=== PATIENT | female | born 1980 ===

== ENCOUNTER 2018-07-12 08:19 | Inpatient (IN) | payer BC, MEDICAID ==
[2018-07-12 08:26] VITALS: BMI 32.3
--- NOTE | 2018-07-12 08:44 | ED PDOC ---
Arrival/HPI - General Chief Complaint: Abdominal Pain Time Seen by Provider: 07/12/18 08:28 Historian: Patient - History of Present Illness Narrative History of Present Illness (Text): 07/12/18 08:43 38 year old female, with no significant past medical history, presents to the emergency department complaining of abdominal pain. Patient states she has been experiencing intermittent abdominal pain for the past few months, but the pain has been constant since yesterday. She reports that the pain usually begins right after she eats. She notes associated shortness of breath and nausea. Patient denies fevers, chills, headache, dizziness, chest pain, cough, vomiting, diarrhea, back pain, neck pain, or any other complaint. Time/Duration: > month Symptom Onset: Gradual Symptom Course: Intermittent Activities at Onset: Light Context: Home Past Medical History - Provider Review Nursing Documentation Reviewed: Yes - Infectious Disease Hx of Infectious Diseases: None - Reproductive Menopause: No - Psychiatric Hx Substance Use: No - Surgical History Hx Section: Yes - Anesthesia Hx Anesthesia: Yes Hx Anesthesia Reactions: No Hx Malignant Hyperthermia: No Family/Social History - Physician Review Nursing Documentation Reviewed: Yes Family/Social History: No Known Family HX Smoking Status: Never Smoked Hx Alcohol Use: No Hx Substance Use: No Allergies/Home Meds Allergies/Adverse Reactions: Allergies No Known Allergies Allergy (Verified 07/12/18 08:30) Home Medications: Home Meds Medication Instructions Recorded Confirmed No Known Home Med 07/12/18 07/12/18 Review of Systems - Physician Review All systems were reviewed & negative as marked: Yes - Review of Systems Constitutional: absent: Fevers Respiratory: SOB. absent: Cough Cardiovascular: absent: Chest Pain Gastrointestinal: Abdominal Pain, Nausea. absent: Diarrhea, Vomiting Genitourinary Female: absent: Dysuria Musculoskeletal: absent: Back Pain, Neck Pain Neurological: absent: Headache, Dizziness Physical Exam - Physical Exam Narrative Physical Exam (Text): 07/12/18 08:43 Gen: VS reviewed, alert, well developed, well nourished, nontoxic, mild distress secondary to pain. ENT: normal pharynx. Eye: EOMI, PERRL. Neck: no JVD, supple, no adenopathy. CV: regular rate, regular rhythm, no rubs, no murmur, no gallops, S1, S2, pulses equal and strong. Pulm: no distress, clear to auscultation, no wheeze, no rhonchi, breath sounds equal, no rales. Abd: soft, epigastric tenderness with a positive Lombardi's sign with guarding, no rebound, no rigidity, normal bowel sounds. Ext: no edema. Skin: good color, no rash, no cyanosis. Psych: responds appropriately to questions, normal affect. Neuro: oriented x 3, CN2-12 intact grossly, motor intact, sensation intact. Vital Signs Reviewed: Yes Vital Signs Temp Pulse Resp BP Pulse Ox 07/12/18 08:36 97.8 F 64 18 130/86 100 Temperature: Afebrile Blood Pressure: Normal Pulse: Regular Respiratory Rate: Normal Appearance: Positive for: Well-Appearing, Non-Toxic, Comfortable Pain Distress: Mild Mental Status: Positive for: Alert and Oriented X 3 Medical Decision Making ED Course and Treatment: 07/12/18 08:43 Impression: 38 year old female who presents to the emergency department complaining of epigastric abdominal pain. Plan: -- Labs -- NPO -- Morphine -- Morphine -- IV fluids -- Zofran -- POC urine test -- Gallbladder and pancreas ultrasound -- Reassess and disposition Prior Visits: Notes and results from previous visits were reviewed. Progress Notes: 07/12/18 13:[address] strong to the hospitalist service. patient to be admitted for persistent pain stemming from impacted gallbladder neck stone. 07/12/18 14:06 - Lab Interpretations I have reviewed the lab results: Yes - RAD Interpretation Narrative RAD Interpretations (Text): 07/12/18 10:24 Gallbladder and pancrease ultrasound reviewed by radiologist, shows: IMPRESSION: Cholelithiasis without evidence of cholecystitis. Possible impacted stone in gallbladder neck. Fatty liver. Multiple simple cysts in right lobe of liver. Mild hepatomegaly. Head Of Science: Radiologist - EKG Interpretation EKG Interpretation (Text): 07/12/18 12:25 0832: ekg my read: sinus estephania at 46 bpm, nml qrs, nml axis , no acute sttw abn Interpreted by ED Physician: Yes - Scribe Statement The provider has reviewed the documentation as recorded by the Khoi Garay Provider Scribe Attestation: All medical record entries made by the Scribe were at my direction and personally dictated by me. I have reviewed the chart and agree that the record accurately reflects my personal performance of the history, physical exam, medical decision making, and the department course for this patient. I have also personally directed, reviewed, and agree with the discharge instructions and disposition. Disposition/Present on Arrival - Present on Arrival Any Indicators Present on Arrival: No History of DVT/PE: No History of Uncontrolled Diabetes: No Urinary Catheter: No History of Decub. Ulcer: No History Surgical Site Infection Following: None - Disposition Have Diagnosis and Disposition been Completed?: Yes Diagnosis: Biliary colic Disposition: HOSPITALIZED Disposition Time: 14:07 Patient Plan: Observation Condition: STABLE Referrals: Regino Baeza NP [Primary Care Provider] - Follow up with primary Forms: [employer] (Khmer)
[2018-07-12] MEDS ORDERED: Morphine 4 mg/ml ISec IVP STA (08:57)
[2018-07-12 09:12] LABS: BASO # 0.02 K/mm3 (0.0-2.0); BASO % 0.2 % (0.0-3.0); EOS # 0.1 (0.0-0.7); EOS % 1.1 % (1.5-5.0); HEMOGLOBIN 14.2 g/dL (12.0-16.0); LYMPH # 1.1 (1.2-3.4); LYMPH % 10.7 % (22.0-35.0); MEAN CELL VOLUME 87.3 fl (80.0-105.0); MEAN CORPUSCULAR HGB CONC 33.3 g/dl (31.0-37.0); MEAN PLATELET VOLUME 10.1 fl (7.0-11.0); MONO # 0.5 (0.1-0.6); MONO % 4.7 % (1.0-6.0); RBC 4.89 10^6/uL (3.5-6.1); RED CELL DISTRIBUTION WIDTH 13.4 % (11.5-14.5); WHITE BLOOD COUNT 10.4 10^3/uL (4.5-11.0)
[2018-07-12] MEDS: Sodium Chloride 0.9% 1,000 ML IV SCH (09:14)
[2018-07-12 09:39] LABS: ALB/GLOB RATIO 1.2 (1.1-1.8); ALBUMIN 4.3 g/dL (3.0-4.8); ALT/SGPT 22 U/L (7-56); AST/SGOT 22 U/L (14-36); BLOOD UREA NITROGEN 14 mg/dL (7-21); CALCIUM 9.2 mg/dL (8.4-10.5); GFR NON-AFRICAN AMERICAN > 60; LIPASE 113 U/L (23-300)
--- NOTE | 2018-07-12 10:15 | US ---
Date of service: 07/12/2018 HISTORY: pain, ?gallstones COMPARISON: None. TECHNIQUE: Sonographic evaluation of the right upper quadrant of the abdomen. FINDINGS: LIVER: Measures 20.1 cm in length. Diffusely increased echogenicity of the liver parenchyma. Consistent with fatty infiltration. Smooth contour. Multiple cysts in right lobe of liver, 12 mm, 13 mm and 14 mm in respective diameter. No solid mass. No biliary ductal dilatation.. GALLBLADDER: Cholelithiasis. No mural thickening. No pericholecystic fluid. Stone suspected impacted at gallbladder neck. Nonmobile. COMMON BILE DUCT: Measures 6 mm. No stones. No dilatation. PANCREAS: Unremarkable as visualized. No mass. No ductal dilatation. RIGHT KIDNEY: Measures 10.3 cm in length. Normal echogenicity. No calculus, mass, or hydronephrosis. AORTA: No aneurysmal dilatation. IVC: Unremarkable. OTHER FINDINGS: None . IMPRESSION: Cholelithiasis without evidence of cholecystitis. Possible impacted stone in gallbladder neck. Fatty liver. Multiple simple cysts in right lobe of liver. Mild hepatomegaly.
[2018-07-12] MEDS ORDERED: Bupivacaine 0.5% 50 ML IJ ONE ×2 (10:18→20:24)
--- NOTE | 2018-07-12 13:18 | CP.PCM.CON ---
History of Present Illness - History of Present Illness History of Present Illness: Harry Ritchie, PGY-[address] Johnson CC: Abdominal pain HPI: Ms. Knight is a 38 F with a past medical history of four c-sections who presents with a 3-4 week history of intermittent epigastric pain. Patient describes the pain as burning and rated at 10/10 at its worst. Patient describes intermittent episodes of diaphoresis that is associated with eating various types of food. Patient has attempted to use Peptobismol and Motrin for pain control with minimal relief. Patient states she is hungry but is nervous about becoming nauseous. Patient currently denies nausea, vomiting, headaches, change in bowel habits, fevers/chills, pain radiating to the back, headaches, blurry vision. Patient reports the pain is currently controlled after receiving Morphine in the ED. PMHx: Denies PSHx: 4 c/sections All: NKDA Social: denies tobacco, etoh and illicit drug use Fam Hx: Father - hx of leukemia Meds: denies Review of Systems - Review of Systems Review of Systems: 12 point ROS completed and negative except as described in HPI. Past Patient History - Infectious Disease Hx of Infectious Diseases: None - Past Social History Smoking Status: Never Smoked - PSYCHIATRIC Hx Substance Use: No - SURGICAL HISTORY Hx Section: Yes - ANESTHESIA Hx Anesthesia: Yes Hx Anesthesia Reactions: No Hx Malignant Hyperthermia: No Meds Allergies/Adverse Reactions: Allergies Allergy/AdvReac Type Severity Reaction Status Date / Time No Known Allergies Allergy Verified 07/12/18 16:19 - Medications Medications: Current Medications Sodium Chloride (Sodium Chloride 0.9%) 1,000 mls @ 150 mls/hr IV .Q6H40M [facility] Last Admin: 07/12/18 09:14 Dose: 150 mls/hr Physical Exam - Constitutional Appears: Non-toxic, No Acute Distress (Uncomfortable ) - Head Exam Head Exam: ATRAUMATIC, NORMAL INSPECTION, NORMOCEPHALIC - Eye Exam Eye Exam: EOMI, Normal appearance Pupil Exam: PERRL - ENT Exam ENT Exam: Mucous Membranes Moist - Neck Exam Neck exam: Positive for: Normal Inspection - Respiratory Exam Respiratory Exam: Clear to Auscultation Bilateral, NORMAL BREATHING PATTERN. absent: Accessory Muscle Use, Decreased Breath Sounds, Rales, Rhonchi, Wheezes - Cardiovascular Exam Cardiovascular Exam: RRR, +S1, +S2 - GI/Abdominal Exam GI & Abdominal Exam: Guarding (RUQ), Hyperactive Bowel Sounds, Soft, Tenderness (RUQ/epigastric tenderness, + Lombardi's sign, negative Rovsing and McBurney's Point). absent: Distended, Firm, Rebound - Extremities Exam Extremities exam: Positive for: full ROM - Back Exam Back exam: NORMAL INSPECTION. absent: CVA tenderness (L), CVA tenderness (R) - Neurological Exam Neurological exam: Alert, Oriented x3 - Psychiatric Exam Psychiatric exam: Normal Affect, Normal Mood Results - Vital Signs Recent Vital Signs: Last Vital Signs Temp 97.8 F 07/12/18 08:36 Pulse 55 L 07/12/18 11:16 Resp 18 07/12/18 11:16 BP 112/48 L 07/12/18 11:16 Pulse Ox 98 07/12/18 11:16 - Labs Result Diagrams: 07/12/18 09:00 07/12/18 09:00 Labs: Laboratory Results - last 24 hr 07/12/18 07/12/18 09:00 09:00 WBC 10.4 RBC 4.89 Hgb 14.2 Hct 42.7 MCV 87.3 MCH 29.0 MCHC 33.3 RDW 13.4 Plt Count 354 MPV 10.1 Neut % (Auto) 83.3 H Lymph % (Auto) 10.7 L [place] % (Auto) 4.7 Eos % (Auto) 1.1 L Baso % (Auto) 0.2 Lymph # (Auto) 1.1 L [place] # (Auto) 0.5 Eos # (Auto) 0.1 Baso # (Auto) 0.02 Absolute Neuts (auto) 8.70 H Sodium 137 Potassium 4.0 Chloride 104 Carbon Dioxide 24 Anion Gap 13 BUN 14 Creatinine 0.5 L Est GFR ( Amer) > 60 Est GFR (Non-Af Amer) > 60 Random Glucose 119 H Calcium 9.2 Total Bilirubin 0.3 AST 22 ALT 22 Alkaline Phosphatase 80 Total Protein 7.9 Albumin 4.3 Globulin 3.6 Albumin/Globulin Ratio 1.2 Lipase 113 Assessment & Plan - Assessment and Plan (Free Text) Assessment: 38 F with no PMHx who presents with epigastric abdominal pain 2/2 cholelithiasis . No fevers or leukocytosis. Gallbladder ultrasound shows cholelithiasis without evidence of cholecystitis. Possible impacted stone in gallbladder neck. Fatty liver. Multiple simple cysts in right lobe of liver. Mild hepatomegaly. Plan: Pain control IVF, NPO Lap issa planned for this evening, patient consented Medical management per medical team Further recs per Dr. Alex Ritchie, PGY-1
[2018-07-12] MEDS ORDERED: Morphine 2 mg/ml ISec IVP PRN (13:54)
[2018-07-12] MEDS ORDERED: Dextrose 5%/0.45% NS 1,000 ML IV SCH (14:15)
--- NOTE | 2018-07-12 14:31 | CP.PCM.HP ---
<Randall Davis - Last Filed: 07/12/18 15:41> History of Present Illness - History of Present Illness History of Present Illness: PGY-1 Medicine H&P for Dr. Mosquera CC: Epigastric pain HPI: Ms. Knight is a 38 year old female with no significant past medical history presenting with epigastric pain. She states that she has been having these pain intermittently for 3 weeks. She states that she gets pain especially after eating out or eating fatty food. Last night, patient had epigastric pain after eating a slice of pizza that lasted for 8 hours. She describes the pain as non-radiating, burning, and rated at 10/10 at its worst. She took Peptobismol and Motrin for pain control without relief. She admits to nausea but denies vomiting. She denies fevers, chills, shortness of breath, chest pain, diarrhea, constipation, or urinary symptoms. In ED, patient received Morphine for pain. 12 system ROS reviewed and negative except mentioned in HPI. PMHx: Denies PSHx: 4 C-sections Allergies: NKDA Social: denies tobacco and illicit drug use. Occasionally drinks wine. She works as a information security engineer. Fam Hx: Father had leukemia. Meds: denies PMD: Dr. Lowry Present on Admission - Present on Admission Any Indicators Present on Admission: No History of DVT/PE: No History of Uncontrolled Diabetes: No Urinary Catheter: No Decubitus Ulcer Present: No Past Patient History - Infectious Disease Hx of Infectious Diseases: None - Past Social History Smoking Status: Never Smoked - PSYCHIATRIC Hx Substance Use: No - SURGICAL HISTORY Hx Section: Yes - ANESTHESIA Hx Anesthesia: Yes Hx Anesthesia Reactions: No Hx Malignant Hyperthermia: No Meds Allergies/Adverse Reactions: Allergies Allergy/AdvReac Type Severity Reaction Status Date / Time No Known Allergies Allergy Verified 07/12/18 16:19 Physical Exam - Additional Findings Additional findings: - Constitutional Appears: Non-toxic, No Acute Distress, appears uncomfortable - Head Exam Head Exam: ATRAUMATIC, NORMAL INSPECTION, NORMOCEPHALIC - Eye Exam Eye Exam: EOMI, Normal appearance Pupil Exam: PERRL - ENT Exam ENT Exam: Mucous Membranes Moist - Neck Exam Neck exam: Positive for: Normal Inspection - Respiratory Exam Respiratory Exam: Clear to Auscultation Bilateral, NORMAL BREATHING PATTERN. absent: Accessory Muscle Use, Decreased Breath Sounds, Rales, Rhonchi, Wheezes - Cardiovascular Exam Cardiovascular Exam: RRR, +S1, +S2 - GI/Abdominal Exam GI & Abdominal Exam: Hyperactive Bowel Sounds, Soft, Tenderness (Epigastric tenderness, Negative Lombardi's sign, negative Rovsing and McBurney's Point). absent: Distended, Firm, Rebound - Extremities Exam Extremities exam: Positive for: full ROM - Back Exam Back exam: NORMAL INSPECTION. absent: CVA tenderness (L), CVA tenderness (R) - Neurological Exam Neurological exam: Alert, Oriented x3 - Psychiatric Exam Psychiatric exam: Normal Affect, Normal Mood Results - Vital Signs Recent Vital Signs: Last Vital Signs Temp 97.8 F 07/12/18 08:36 Pulse 55 L 07/12/18 11:16 Resp 18 07/12/18 11:16 BP 112/48 L 07/12/18 11:16 Pulse Ox 98 07/12/18 11:16 - Labs Result Diagrams: 07/12/18 09:00 07/12/18 09:00 Labs: Laboratory Results - last 24 hr 07/12/18 07/12/18 09:00 09:00 WBC 10.4 RBC 4.89 Hgb 14.2 Hct 42.7 MCV 87.3 MCH 29.0 MCHC 33.3 RDW 13.4 Plt Count 354 MPV 10.1 Neut % (Auto) 83.3 H Lymph % (Auto) 10.7 L [place] % (Auto) 4.7 Eos % (Auto) 1.1 L Baso % (Auto) 0.2 Lymph # (Auto) 1.1 L [place] # (Auto) 0.5 Eos # (Auto) 0.1 Baso # (Auto) 0.02 Absolute Neuts (auto) 8.70 H Sodium 137 Potassium 4.0 Chloride 104 Carbon Dioxide 24 Anion Gap 13 BUN 14 Creatinine 0.5 L Est GFR ( Amer) > 60 Est GFR (Non-Af Amer) > 60 Random Glucose 119 H Calcium 9.2 Total Bilirubin 0.3 AST 22 ALT 22 Alkaline Phosphatase 80 Total Protein 7.9 Albumin 4.3 Globulin 3.6 Albumin/Globulin Ratio 1.2 Lipase 113 Assessment & Plan - Assessment and Plan (Free Text) Assessment: Patient is a 38 year old female with no significant past medical history presenting with epigastric pain. Patient is admitted for management and treatment of cholelithiasis. Plan: Cholelithiasis - Gallbladder ultrasound shows cholelithiasis without evidence of cholecystitis. Possible impacted stone in gallbladder neck. Fatty liver. Multiple simple cysts in right lobe of liver. Mild hepatomegaly. - Surgery consulted, Dr. Johnson - Morphine 2mg Q4 PRN - Tylenol 650mg PO PRN - Zofran 4mg IVP Q4 PRN - IVF: NS @ 100 mls/hr - Keep patient NPO - Lipase: 113 - AST/ALT: - Alk phos: 80 Prophylaxis: - SCD's Patient seen and case discussed with attending, Dr. Eveline Davis, PGY-1 <Emeka Mosquera - Last Filed: 07/12/18 19:44> Results - Vital Signs Recent Vital Signs: Last Vital Signs Temp 97.8 F 07/12/18 08:36 Pulse 57 L 07/12/18 19:32 Resp 18 07/12/18 19:32 BP 103/63 07/12/18 19:32 Pulse Ox 100 07/12/18 19:32 - Labs Result Diagrams: 07/12/18 09:00 07/12/18 09:00 Labs: Laboratory Results - last 24 hr 07/12/18 07/12/18 07/12/18 09:00 09:00 17:06 WBC 10.4 RBC 4.89 Hgb 14.2 Hct 42.7 MCV 87.3 MCH 29.0 MCHC 33.3 RDW 13.4 Plt Count 354 MPV 10.1 Neut % (Auto) 83.3 H Lymph % (Auto) 10.7 L [place] % (Auto) 4.7 Eos % (Auto) 1.1 L Baso % (Auto) 0.2 Lymph # (Auto) 1.1 L [place] # (Auto) 0.5 Eos # (Auto) 0.1 Baso # (Auto) 0.02 Absolute Neuts (auto) 8.70 H PT INR APTT Sodium 137 Potassium 4.0 Chloride 104 Carbon Dioxide 24 Anion Gap 13 BUN 14 Creatinine 0.5 L Est GFR ( Amer) > 60 Est GFR (Non-Af Amer) > 60 Random Glucose 119 H Calcium 9.2 Total Bilirubin 0.3 AST 22 ALT 22 Alkaline Phosphatase 80 Total Protein 7.9 Albumin 4.3 Globulin 3.6 Albumin/Globulin Ratio 1.2 Lipase 113 Blood Type B POSITIVE Blood Type Confirm Antibody Screen Negative BBK History Checked No verified bt 07/12/18 07/12/18 17:06 17:23 WBC RBC Hgb Hct MCV MCH MCHC RDW Plt Count MPV Neut % (Auto) Lymph % (Auto) [place] % (Auto) Eos % (Auto) Baso % (Auto) Lymph # (Auto) [place] # (Auto) Eos # (Auto) Baso # (Auto) Absolute Neuts (auto) PT 12.5 INR 1.13 APTT 33.1 Sodium Potassium Chloride Carbon Dioxide Anion Gap BUN Creatinine Est GFR ( Amer) Est GFR (Non-Af Amer) Random Glucose Calcium Total Bilirubin AST ALT Alkaline Phosphatase Total Protein Albumin Globulin Albumin/Globulin Ratio Lipase Blood Type Blood Type Confirm B POSITIVE Antibody Screen BBK History Checked Attending/Attestation - Attestation I have personally seen and examined this patient.: Yes I have fully participated in the care of the patient.: Yes I have reviewed all pertinent clinical information: Yes Notes (Text): 38 y/o F with no significant PMH presented with complaints of severe abdominal pain. Work up was consistent with cholelithiasis without any evidence of cholecystitis. Surgery consulted, plan is for OR tonight. c/w pain meds PRN. Ty lenol PRN for fever
[2018-07-12] MEDS ORDERED: HYDROmorphone 0.5 mg/0.5 ml ISec IVP PRN (16:34)
[2018-07-12 17:29] LABS: INR 1.13; PARTIAL THROMBOPLASTIN TIME 33.1 Seconds (26.9-38.3); PROTHROMBIN TIME 12.5 SECONDS (9.4-12.5)
--- NOTE | 2018-07-12 17:55 | CARD ---
APPROVED REPORT Date of service: 07/12/2018 EKG Measurement Heart [id number] MD [id number] <Conclusion> Marked sinus bradycardia Abnormal ECG
[2018-07-12] MEDS ORDERED: Succinylcholine 200 mg/10 ml Inj IV ONE (20:26)
[2018-07-12] MEDS ORDERED: Propofol 10 mg/ml Inj (20 ML) ONE (20:26)
[2018-07-12] MEDS ORDERED: Sevoflurane - Inhalation Anesthetic Liq (250 ml) ONE (20:32)
[2018-07-12] MEDS ORDERED: Desflurane Inhalation Anesthetic Liq (240 ml) ONE (20:32)
[2018-07-12] MEDS ORDERED: Midazolam 2 MG/2 ML VIAL ONE (20:37)
[2018-07-12] MEDS ORDERED: Lactated Ringer's 1,000 ML IV SCH (20:45)
[2018-07-12] MEDS ORDERED: Rocuronium 10 mg/ml (5 ml) ONE (21:05)
[2018-07-12] MEDS ORDERED: Phenylephrine 10 mg/ml Inj ONE (21:16)
[2018-07-12] MEDS ORDERED: Neostigmine Methylsulfate 3mg/3ml Syringe IV ONE ×2 (21:18→21:20)
[2018-07-12] MEDS ORDERED: Esmolol 100 mg/10ml Inj IV ONE (22:03)
[2018-07-12] MEDS ORDERED: Liquid Adhesive TOP ONE (22:14)
[2018-07-12] MEDS: HYDROmorphone 0.5 mg/0.5 ml ISec IVP PRN ×2 (22:35→22:50)
[2018-07-12] MEDS ORDERED: Oxycodone/Acetaminophen 5/325 mg Tab PO PRN (22:38)
--- NOTE | 2018-07-12 22:38 | PCM.SURG1 ---
Surgeon's Initial Post Op Note - Surgeon's Notes Surgeon: Dr. Johnson Sales Driver: Dr. Montanez PGY3 Type of Anesthesia: General Endo Anesthesia Administered By: Dr. Cesar Pre-Operative Diagnosis: Symptomatic Cholelithiasis Operative Findings: See operative dictation Post-Operative Diagnosis: Same Operation Performed: Laparoscopic Cholecystectomy Specimen/Specimens Removed: Gallbladder Estimated Blood Loss: EBL {In ML}: 20 Blood Products Given: N/A Drains Used: No Drains Post-Op Condition: Good Date of Surgery/Procedure: 07/12/18 Time of Surgery/Procedure: 22:37
[2018-07-12] MEDS ORDERED: HYDROmorphone 0.5 mg/0.5 ml ISec ONE ×2 (22:39→22:55)
[2018-07-12] MEDS ORDERED: Pneumococcal 23-Valent Vaccine IM ONE (22:56)
[2018-07-12] MEDS ORDERED: Influenza Vaccine 60 mcg/0.5 mL SYR (4YR UP) IM ONE (22:56)
[2018-07-13] MEDS ORDERED: Pantoprazole 40 mg EC Tab PO STA (01:46)
[2018-07-13] MEDS: Sodium Chloride 0.9% 1,000 ML IV SCH (01:53)
--- NOTE | 2018-07-13 03:02 | CP.PCM.PN ---
Subjective - Date & Time of Evaluation Date of Evaluation: 07/13/18 Time of Evaluation: 02:39 - Subjective Subjective: # 24 angiocath was inserted in left hand. Patient was given protonix 40 mg PO for upset stomach. Vitals signs are stable. Objective - Vital Signs/Intake and Output Vital Signs (last 24 hours): Temp Pulse Resp BP Pulse Ox 98.2 F 56 L 17 131/87 98 07/12/18 23:12 07/12/18 23:12 07/12/18 23:12 07/12/18 23:12 07/12/18 23:12 - Medications Medications: Current Medications Acetaminophen (Tylenol 325mg Tab) 650 mg PO Q6H PRN PRN Reason: Pain, Mild (1-3) Hydromorphone HCl (Dilaudid) 0.5 mg IVP Q6H PRN PRN Reason: Pain, severe (8-10) Last Admin: 07/13/18 01:53 Dose: 0.5 mg Sodium Chloride (Sodium Chloride 0.9%) 1,000 mls @ 150 mls/hr IV .Q6H40M [facility] Last Admin: 07/13/18 01:53 Dose: 150 mls/hr Dextrose/Sodium Chloride (Dextrose 5%/0.45% Ns 1000 Ml) 1,000 mls @ 75 mls/hr IV .[id number] [facility] Stop: 07/13/18 03:34 Last Admin: 07/12/18 15:31 Dose: 75 mls/hr Ondansetron HCl (Zofran Inj) 4 mg IVP Q4H PRN PRN Reason: Nausea/Vomiting Ondansetron HCl (Zofran Inj) 4 mg IVP ONCE PRN PRN Reason: Nausea/Vomiting Oxycodone/Acetaminophen (Percocet 5/325 Mg Tab) 1 tab PO Q4 PRN PRN Reason: Pain, moderate (4-7) Stop: 07/16/18 00:01 - Labs Labs: 07/12/18 09:00 07/12/18 09:00 PT 12.5 SECONDS (9.4-12.5) 07/12/18 17:06 INR 1.13 07/12/18 17:06 APTT 33.1 Seconds (26.9-38.3) 07/12/18 17:06
[2018-07-13 07:02] LABS: HEMOGLOBIN 13.5 g/dL (12.0-16.0); LYMPH # 0.7 (1.2-3.4); LYMPH % 6.3 % (22.0-35.0); MEAN CELL VOLUME 87.2 fl (80.0-105.0); MEAN CORPUSCULAR HEMOGLOBIN 28.7 pg (25.0-35.0); MEAN CORPUSCULAR HGB CONC 32.9 g/dl (31.0-37.0); MEAN PLATELET VOLUME 10.4 fl (7.0-11.0); MONO # 0.4 (0.1-0.6); MONO % 3.7 % (1.0-6.0); RBC 4.7 10^6/uL (3.5-6.1); RED CELL DISTRIBUTION WIDTH 13.4 % (11.5-14.5); WHITE BLOOD COUNT 10.6 10^3/uL (4.5-11.0)
[2018-07-13 07:19] LABS: ALB/GLOB RATIO 1.1 (1.1-1.8); ALT/SGPT 62 U/L (7-56); AST/SGOT 99 U/L (14-36); BLOOD UREA NITROGEN 8 mg/dL (7-21); CALCIUM 8.8 mg/dL (8.4-10.5); GFR NON-AFRICAN AMERICAN > 60
--- NOTE | 2018-07-13 07:24 | CP.PCM.PN ---
Subjective - Date & Time of Evaluation Date of Evaluation: 07/13/18 Time of Evaluation: 07:24 Objective - Vital Signs/Intake and Output Vital Signs (last 24 hours): Temp Pulse Resp BP Pulse Ox 98.2 F 56 L 17 131/87 98 07/12/18 23:12 07/12/18 23:12 07/12/18 23:12 07/12/18 23:12 07/12/18 23:12 - Medications Medications: Current Medications Acetaminophen (Tylenol 325mg Tab) 650 mg PO Q6H PRN PRN Reason: Pain, Mild (1-3) Hydromorphone HCl (Dilaudid) 0.5 mg IVP Q6H PRN PRN Reason: Pain, severe (8-10) Last Admin: 07/13/18 01:53 Dose: 0.5 mg Ondansetron HCl (Zofran Inj) 4 mg IVP Q4H PRN PRN Reason: Nausea/Vomiting Ondansetron HCl (Zofran Inj) 4 mg IVP ONCE PRN PRN Reason: Nausea/Vomiting Oxycodone/Acetaminophen (Percocet 5/325 Mg Tab) 1 tab PO Q4 PRN PRN Reason: Pain, moderate (4-7) Stop: 07/16/18 00:01 - Labs Labs: 07/13/18 06:20 07/13/18 06:20 PT 12.5 SECONDS (9.4-12.5) 07/12/18 17:06 INR 1.13 07/12/18 17:06 APTT 33.1 Seconds (26.9-38.3) 07/12/18 17:06
[2018-07-13 08:01] VITALS: RESP 18
--- NOTE | 2018-07-13 14:40 | CP.PCM.DIS ---
<Randall Davis - Last Filed: 07/13/18 17:20> Provider - Provider Date of Admission: 07/12/18 14:08 Attending physician: Angela Christianson DO Primary care physician: Regino Baeza NP Consults: 07/12/18 13:09 General Surgery Consult Stat Comment: Consulting Provider: Valentin Johnson Consulting Physician: Valentin Johnson Reason for Consult: biliary colic Time Spent in preparation of Discharge (in minutes): 45 Diagnosis - Discharge Diagnosis (1) Cholelithiasis Status: Resolved (2) S/P laparoscopic cholecystectomy Status: Resolved (3) Abdominal pain Status: Acute Hospital Course - Lab Results Lab Results: Most Recent Lab Values WBC 10.6 10^3/uL (4.5-11.0) 07/13/18 06:20 RBC 4.70 10^6/uL (3.5-6.1) 07/13/18 06:20 Hgb 13.5 g/dL (12.0-16.0) 07/13/18 06:20 Hct 41.0 % (36.0-48.0) 07/13/18 06:20 MCV 87.2 fl (80.0-105.0) 07/13/18 06:20 MCH 28.7 pg (25.0-35.0) 07/13/18 06:20 MCHC 32.9 g/dl (31.0-37.0) 07/13/18 06:20 RDW 13.4 % (11.5-14.5) 07/13/18 06:20 Plt Count 325 10^3/uL (120.0-450.0) 07/13/18 06:20 MPV 10.4 fl (7.0-11.0) 07/13/18 06:20 Neut % (Auto) 90.0 % (50.0-68.0) H 07/13/18 06:20 Lymph % (Auto) 6.3 % (22.0-35.0) L 07/13/18 06:20 Gregory % (Auto) 3.7 % (1.0-6.0) 07/13/18 06:20 Eos % (Auto) 0.0 % (1.5-5.0) L 07/13/18 06:20 Baso % (Auto) 0.0 % (0.0-3.0) 07/13/18 06:20 Lymph # (Auto) 0.7 (1.2-3.4) L 07/13/18 06:20 Gregory # (Auto) 0.4 (0.1-0.6) 07/13/18 06:20 Eos # (Auto) 0.0 (0.0-0.7) 07/13/18 06:20 Baso # (Auto) 0.00 K/mm3 (0.0-2.0) 07/13/18 06:20 Absolute Neuts (auto) 9.51 (1.4-6.5) H 07/13/18 06:20 PT 12.5 SECONDS (9.4-12.5) 07/12/18 17:06 INR 1.13 07/12/18 17:06 APTT 33.1 Seconds (26.9-38.3) 07/12/18 17:06 Sodium 138 mmol/L (132-148) 07/13/18 06:20 Potassium 4.4 mmol/L (3.6-5.0) 07/13/18 06:20 Chloride 108 mmol/L (98-107) H 07/13/18 06:20 Carbon Dioxide 21 mmol/L (21-33) 07/13/18 06:20 Anion Gap 14 (10-20) 07/13/18 06:20 BUN 8 mg/dL (7-21) 07/13/18 06:20 Creatinine 0.5 mg/dl (0.7-1.2) L 07/13/18 06:20 Est GFR ( Amer) > 60 07/13/18 06:20 Est GFR (Non-Af Amer) > 60 07/13/18 06:20 Random Glucose 124 mg/dL (70-110) H 07/13/18 06:20 Calcium 8.8 mg/dL (8.4-10.5) 07/13/18 06:20 Phosphorus 3.3 mg/dL (2.5-4.5) 07/13/18 06:20 Magnesium 2.0 mg/dL (1.7-2.2) 07/13/18 06:20 Total Bilirubin 0.5 mg/dL (0.2-1.3) 07/13/18 06:20 AST 99 U/L (14-36) H D 07/13/18 06:20 ALT 62 U/L (7-56) H 07/13/18 06:20 Alkaline Phosphatase 77 U/L (38-126) 07/13/18 06:20 Total Protein 7.6 g/dL (5.8-8.3) 07/13/18 06:20 Albumin 4.0 g/dL (3.0-4.8) 07/13/18 06:20 Globulin 3.6 gm/dL 07/13/18 06:20 Albumin/Globulin Ratio 1.1 (1.1-1.8) 07/13/18 06:20 Lipase 113 U/L (23-300) 07/12/18 09:00 Blood Type B POSITIVE 07/12/18 17:06 Blood Type Confirm B POSITIVE 07/12/18 17:23 Antibody Screen Negative 07/12/18 17:06 BBK History Checked No verified bt 07/12/18 17:06 - Hospital Course Hospital Course: Patient is a 38 year old female with no significant past medical history who presented to ED with non-radiating, burning, 10/10 epigastric pain that began after eating a slice of pizza that lasted for 8 hours. Patient reported having similar intermittent pain over the past 3 weeks especially after eating out or any fatty food. She took Peptobismol and Motrin for pain control without relief. She admitted to nausea but denied vomiting. In ED, patient received Morphine and Tylenol for pain, Zofran for nausea, given IVF NS @ 100 mls/hr and kept NPO. Ultrasound of the gallbladder revealed cholelithiasis without evidence of cholecystitis and possible impacted stones in gallbladder neck. Surgery (Dr. Johnson) consulted and performed an emergent laparoscopic cholecystectomy. She tolerated an advancing diet throughout the day without any nausea or vomiting. Patient is ambulating and her pain is controlled. She was told to follow up with Dr. Johnson and her PMD. In addition, she was told to return to the emergency department if she had any recurring or new concerning symptoms. Patient is medically optimized for discharge. Discharge Exam - Additional Findings Additional findings: - Constitutional Appears: Non-toxic, No Acute Distress, appears uncomfortable - Head Exam Head Exam: ATRAUMATIC, NORMAL INSPECTION, NORMOCEPHALIC - Eye Exam Eye Exam: EOMI, Normal appearance Pupil Exam: PERRL - ENT Exam ENT Exam: Mucous Membranes Moist - Neck Exam Neck exam: Positive for: Normal Inspection - Respiratory Exam Respiratory Exam: Clear to Auscultation Bilateral, NORMAL BREATHING PATTERN. absent: Accessory Muscle Use, Decreased Breath Sounds, Rales, Rhonchi, Wheezes - Cardiovascular Exam Cardiovascular Exam: RRR, +S1, +S2 - GI/Abdominal Exam GI & Abdominal Exam: Normal Bowel Sounds, Soft, Tenderness (Epigastric tenderness). absent: Distended, Firm, Rebound Surgical dressing in place, C/D/I - Extremities Exam Extremities exam: Positive for: full ROM - Back Exam Back exam: NORMAL INSPECTION. absent: CVA tenderness (L), CVA tenderness (R) - Neurological Exam Neurological exam: Alert, Oriented x3 - Psychiatric Exam Psychiatric exam: Normal Affect, Normal Mood Discharge Plan - Discharge Medications Prescriptions: oxyCODONE/Acetaminophen [Percocet 5/325 mg Tab] 1 ea PO Q6 PRN #15 tab PRN Reason: Pain, Moderate (4-7) - Follow Up Plan Condition: STABLE Disposition: HOME/ ROUTINE Instructions: Gallstones, Low Cholesterol, Saturated Fat, and Trans Fat Diet , Cholecystectomy, Laparoscopic Surgery, Flu Vaccine, Abdominal Pain (ED) Additional Instructions: 1. Take Percocet every 6 hours as needed for Pain. You may also take Motrin 400mg every 6 hours for pain as needed, please follow dose instructions. 2. Patient will follow up in 1-2 weeks with surgery, Dr. Johnson. Follow up with your primary care doctor in 1-2 weeks. 3. Follow a low fat diet. Expect to have diarrhea when eating fatty foods as discussed with the surgery team. 4. Do not lift heavy weights of more than 20 pounds for at least 2 weeks. 5. Return to the emergency room for worsening or newly concerning symptoms. 6. Allow strips to fall off on their own. Referrals: Valnetin Johnson MD [Staff Provider] - Regino Baeza NP [Primary Care Provider] - <Yoselin Farah - Last Filed: 07/18/18 07:50> Provider - Provider Date of Admission: 07/12/18 14:08 Attending physician: Angela Christianson DO Primary care physician: Regino Baeza NP Consults: 07/12/18 13:09 General Surgery Consult Stat Comment: Consulting Provider: Valentin Johnson Consulting Physician: Valentin Johnson Reason for Consult: biliary colic Hospital Course - Lab Results Lab Results: Most Recent Lab Values WBC 10.6 10^3/uL (4.5-11.0) 07/13/18 06:20 RBC 4.70 10^6/uL (3.5-6.1) 07/13/18 06:20 Hgb 13.5 g/dL (12.0-16.0) 07/13/18 06:20 Hct 41.0 % (36.0-48.0) 07/13/18 06:20 MCV 87.2 fl (80.0-105.0) 07/13/18 06:20 MCH 28.7 pg (25.0-35.0) 07/13/18 06:20 MCHC 32.9 g/dl (31.0-37.0) 07/13/18 06:20 RDW 13.4 % (11.5-14.5) 07/13/18 06:20 Plt Count 325 10^3/uL (120.0-450.0) 07/13/18 06:20 MPV 10.4 fl (7.0-11.0) 07/13/18 06:20 Neut % (Auto) 90.0 % (50.0-68.0) H 07/13/18 06:20 Lymph % (Auto) 6.3 % (22.0-35.0) L 07/13/18 06:20 Gregory % (Auto) 3.7 % (1.0-6.0) 07/13/18 06:20 Eos % (Auto) 0.0 % (1.5-5.0) L 07/13/18 06:20 Baso % (Auto) 0.0 % (0.0-3.0) 07/13/18 06:20 Lymph # (Auto) 0.7 (1.2-3.4) L 07/13/18 06:20 Gregory # (Auto) 0.4 (0.1-0.6) 07/13/18 06:20 Eos # (Auto) 0.0 (0.0-0.7) 07/13/18 06:20 Baso # (Auto) 0.00 K/mm3 (0.0-2.0) 07/13/18 06:20 Absolute Neuts (auto) 9.51 (1.4-6.5) H 07/13/18 06:20 PT 12.5 SECONDS (9.4-12.5) 07/12/18 17:06 INR 1.13 07/12/18 17:06 APTT 33.1 Seconds (26.9-38.3) 07/12/18 17:06 Sodium 138 mmol/L (132-148) 07/13/18 06:20 Potassium 4.4 mmol/L (3.6-5.0) 07/13/18 06:20 Chloride 108 mmol/L (98-107) H 07/13/18 06:20 Carbon Dioxide 21 mmol/L (21-33) 07/13/18 06:20 Anion Gap 14 (10-20) 07/13/18 06:20 BUN 8 mg/dL (7-21) 07/13/18 06:20 Creatinine 0.5 mg/dl (0.7-1.2) L 07/13/18 06:20 Est GFR ( Amer) > 60 07/13/18 06:20 Est GFR (Non-Af Amer) > 60 07/13/18 06:20 Random Glucose 124 mg/dL (70-110) H 07/13/18 06:20 Calcium 8.8 mg/dL (8.4-10.5) 07/13/18 06:20 Phosphorus 3.3 mg/dL (2.5-4.5) 07/13/18 06:20 Magnesium 2.0 mg/dL (1.7-2.2) 07/13/18 06:20 Total Bilirubin 0.5 mg/dL (0.2-1.3) 07/13/18 06:20 AST 99 U/L (14-36) H D 07/13/18 06:20 ALT 62 U/L (7-56) H 07/13/18 06:20 Alkaline Phosphatase 77 U/L (38-126) 07/13/18 06:20 Total Protein 7.6 g/dL (5.8-8.3) 07/13/18 06:20 Albumin 4.0 g/dL (3.0-4.8) 07/13/18 06:20 Globulin 3.6 gm/dL 07/13/18 06:20 Albumin/Globulin Ratio 1.1 (1.1-1.8) 07/13/18 06:20 Lipase 113 U/L (23-300) 07/12/18 09:00 Blood Type B POSITIVE 07/12/18 17:06 Blood Type Confirm B POSITIVE 07/12/18 17:23 Antibody Screen Negative 07/12/18 17:06 BBK History Checked No verified bt 07/12/18 17:06 Attending/Attestation - Attestation I have personally seen and examined this patient.: Yes I have fully participated in the care of the patient.: Yes I have reviewed all pertinent clinical information, including history, physical exam and plan: Yes Notes (Text): 07/18/18 07:48 Medical record note made by the resident after discussion with my direction and input after the patient was personally seen and examined by me. I have reviewed the chart and agree that the record accurately reflects by personal performance of the history, physical exam, data review, and medical decision-making, in the course for the patient. I have also personally directed the plan of care. 38 year old female with no significant past medical history was admitted with cholelithiasis. Patient underwent laproscopic cholycystectomy yesterday.She remain stable after surgery. Patient is tolerating food.She is ambulatory. Patient will be discharged home and will follow up with surgery and [facility]. Management plan was discussed in detail with patient. Education was provided.
--- NOTE | 2018-07-13 14:45 | CP.PCM.PN ---
Subjective - Date & Time of Evaluation Date of Evaluation: 07/13/18 Time of Evaluation: 10:00 - Subjective Subjective: Surgery Progress note. Dr. Johnson Pt seen and examined at bedside this morning. No acute events overnight. States that she is apprehensive to eat any food. Pain is moderately controlled but still needs some adjustment. No N/V/D. No F/C. no new complaints. Objective - Vital Signs/Intake and Output Vital Signs (last 24 hours): Temp Pulse Resp BP Pulse Ox 98.4 F 59 L 18 116/69 97 07/13/18 06:00 07/13/18 06:00 07/13/18 06:00 07/13/18 06:00 07/13/18 06:00 - Medications Medications: Current Medications Acetaminophen (Tylenol 325mg Tab) 650 mg PO Q6H PRN PRN Reason: Pain, Mild (1-3) Hydromorphone HCl (Dilaudid) 0.5 mg IVP Q6H PRN PRN Reason: Pain, severe (8-10) Last Admin: 07/13/18 01:53 Dose: 0.5 mg Ondansetron HCl (Zofran Inj) 4 mg IVP Q4H PRN PRN Reason: Nausea/Vomiting Ondansetron HCl (Zofran Inj) 4 mg IVP ONCE PRN PRN Reason: Nausea/Vomiting Oxycodone/Acetaminophen (Percocet 5/325 Mg Tab) 1 tab PO Q4 PRN PRN Reason: Pain, moderate (4-7) Stop: 07/16/18 00:01 Last Admin: 07/13/18 12:42 Dose: 1 tab - Labs Labs: 07/13/18 06:20 07/13/18 06:20 PT 12.5 SECONDS (9.4-12.5) 07/12/18 17:06 INR 1.13 07/12/18 17:06 APTT 33.1 Seconds (26.9-38.3) 07/12/18 17:06 - Constitutional Appears: Well, Non-toxic, No Acute Distress - Head Exam Head Exam: ATRAUMATIC, NORMAL INSPECTION, NORMOCEPHALIC - Eye Exam Eye Exam: EOMI, Normal appearance. absent: Scleral icterus - ENT Exam ENT Exam: Mucous Membranes Moist - Respiratory Exam Respiratory Exam: NORMAL BREATHING PATTERN. absent: Accessory Muscle Use, Respiratory Distress - Cardiovascular Exam Cardiovascular Exam: RRR. absent: JVD - GI/Abdominal Exam GI & Abdominal Exam: Soft. absent: Distended, Firm, Guarding, Rebound - Extremities Exam Extremities Exam: Normal Inspection. absent: Calf Tenderness - Neurological Exam Neurological Exam: Alert, Awake, Oriented x3 - Psychiatric Exam Psychiatric exam: Normal Affect, Normal Mood - Skin Skin Exam: Dry, Intact, Normal Color, Warm Assessment and Plan - Assessment and Plan (Free Text) Assessment: 38yo F s/p Lap Kalie. POD 1 Plan: - Advance diet as tolerated - Pain management - cleared for d/c home from surgical standpoint if tolerating diet and freely ambulating. - Follow up with Dr. Johnson in office in 7-10 days. Call for appointment. Further recs as per Dr. Johnson. Patrick Ceballos PGY2 Surgery
[2018-07-13 15:26] VITALS: BP 128/88; PULSE 96; TEMP 99.3; O2SAT 98
--- NOTE | 2018-07-18 08:13 | OP ---
PROCEDURE DATE: 07/12/2018 PREOPERATIVE DIAGNOSIS: Symptomatic cholelithiasis. POSTOPERATIVE DIAGNOSIS: Acute cholecystitis. PROCEDURE: Laparoscopic cholecystectomy. SURGEON: Valentin Johnson MD. MAINTAINER OPERATOR: Adis Montanez DO ANESTHETIC: General anesthesia. ANESTHESIOLOGIST: Dr. Cesar. SUMMARY OF FINDINGS: No intraoperative complications. SPECIMEN SENT TO PATHOLOGY: Gallbladder. DISPOSITION: The patient went to PACU without any issues. CLINICAL NOTE: Ms. Radha Knight is a 38-year-old female without any significant medical history, who is presenting with three weeks of abdominal pain following meals, nothing made it better and nothing made it worse. It will come and go over time. It has happened previously years ago as well. Ultrasound was done, found a gallstones without any gallbladder wall thickening or CBD dilation suggestive of acute cholecystitis. Consent was obtained, decision was made to head to the operating room on this hospital admission to remove her gallbladder. Informed consent was obtained by Dr. Montanez for a laparoscopic, possible open cholecystectomy. All other indicative procedures. DESCRIPTION OF PROCEDURE: The patient was brought to the operating room, where a standard time-out was done and the patient was identified, to be the correct patient. IV antibiotics were administered prior in the ER. The patient was intubated and general anesthesia was administered with the patient in a supine position. A supraumbilical incision was made. The abdomen was insufflated using a Veress needle to a pressure of 15 mmHg. A bladed 11 trocar was placed in the supraumbilical incision, the camera was inserted, no signs of any trauma or bleeding was noted. Next, a right lateral port was placed, skin incision was made. A 5-mm bladed trocar was inserted under direct visualization. Following that a 12-mm bladed trocar was placed subxiphoid under direct visualization and the fourth assist port was placed between the other 2 ports using a 5 bladed trocar as well under direct visualization. Upon inspection of the abdomen, multiple adhesions were noted between the liver and the abdominal wall, these were dissected sharply using a laparoscopic scissors. Next, the patient was placed in a reverse Trendelenburg with the right side up. The bladder initially not appearing inflamed; however, large stone noted. The gallbladder was then retracted over the liver and laterally. The peritoneum overlying the gallbladder, infundibulum was incised using electrocautery. Using the [place] dissector, the tissues surrounding the cystic structures were pulled down posteriorly under clear view. No other structures were noted coming in to the gallbladder. Using a 12 clip laparoscopic scissors the cystic duct was clipped and transected. Then the cystic artery was was clipped using a 12 Hemoclip and sharply dissected. Hemostasis was maintained while the gallbladder was dissected off the gallbladder fossa. Good hemostasis was achieved. Using an EndoCatch bag, the gallbladder was then placed in the EndoCatch bag and removed from the supraumbilical incision. Camera was then reinserted. No injuries were noted on inspection of the abdomen. The supraumbilical incision was then closed using a 0 Vicryl on a U-stitch. The skin was then closed using a 4-0 Monocryl for all port sites and then covered with Steri-Strips. All counts were confirmed correct by the nursing staff. There were no intraoperative complications. Estimated blood loss was 5 mL. All instruments accounted for. The patient was extubated and transferred to PACU in stable condition. Adis Montanez DO Valentin Johnson MD DIOR
== END 2018-07-13 16:10 | disposition home or self-care (01) | DRG 494 ==
LOC: ED 08:19 → ERH 14:08 → 5RNO 23:14
PROVIDERS: ADMIT Hospitalist; ATTEND Hospitalist
PROC: 0FT44ZZ Resection of Gallbladder, Percutaneous Endoscopic Approach (ICD-10-PCS; principal; 2018-07-12 18:00)
DX: K80.10 Calculus of gallbladder with chronic cholecystitis without obstruction (principal); K76.0 Fatty (change of) liver, not elsewhere classified; K76.89 Other specified diseases of liver; Z98.891 History of uterine scar from previous surgery; Z80.6 Family history of leukemia; R16.0 Hepatomegaly, not elsewhere classified